=== PATIENT | male | born 1950 | race Hispanic/Latino ===

== ENCOUNTER → 2017-12-24 | Day surgery (SDC) | payer MEDICARE ==
[2017-12-24] VITALS (10 sets, daily range): BP systolic 139–166; BP diastolic 71–78
[~2017-12-24] VITALS: Ht 167.6 cm; Wt 77.1 kg
[~2017-12-24] MED LIST: ALPRAZOLAM 0.5 MG TAB ONE; ASPIRIN 325 MG TAB ONE; CARVEDILOL12.5 MG PO; DIPHENHYDRAMINE HCL 25 MG CAP ONE; DOCUSATE SODIU100 MG PO; FENTANYL CITRATE/PF 100MCG/2 ML INJ ONE; HEPARIN SOD (PORCINE) 1000 UNIT/ML 30ML ONE; HEPARIN SOD/SOD CHLORIDE 2,000 ML ONE; HUMALOG100 UNIT/3; IOPAMIDOL 300MG/ML 100 ML INFUS..BTL IV ONE; LANTUS 3ML100 UNITS/; LIDOCAINE HCL 2% LOCAL 20 ML VIAL ONE; MIDAZOLAM HCL 2 MG/2 ML VIAL ONE; NEORAL25 MG; NIACIN500 M2 PO; NIFEDIPINE10 MG PO; NITROGLYCERIN/D5W 200 MCG/ML 250 ML ONE; PRASUGREL 10 MG TAB ONE; PREDNISONE5 MG; SODIUM CHLORIDE 0.9% 1000ML 1,000 ML ONE; VERAPAMIL HCL 2.5 MG/ML 2 ML VIAL ONE; [UNRECOGNIZED DRUG - OTHER]
[2017-12-24 12:56] LABS: BASOPHILS # (AUTO) 0.1 (0.0-0.1); EOSINOPHILS # (AUTO) 0.1 (0.0-0.4); EOSINOPHILS % 1.8 % (0.0-6.0); HEMATOCRIT 30.2 % (38.2-49.6); HEMOGLOBIN 10.3 g/dL (14.0-18.0); LYMPHOCYTES # (AUTO) 1.2 (1.0-3.2); LYMPHOCYTES % 22.8 % (18.0-39.1); MEAN CORPUSCULAR HGB CONC 34.1 g/dL (31-35); MONOCYTES # (AUTO) 0.6 (0.2-0.8); MONOCYTES % 10.8 % (4.4-11.3); NEUTROPHILS # (AUTO) 3.1 (2.1-6.9); NEUTROPHILS % 61.8 % (38.7-80.0); PLATELET COUNT 225 x10e3/uL (140-360); RED BLOOD COUNT 3.43 x10e6/uL (4.3-5.7); RED CELL DISTRIBUTION WIDTH 13.6 % (11.7-14.4)
[2017-12-24 13:19] LABS: ALBUMIN 3.7 g/dL (3.5-5.0); ANION GAP 13.9 mmol/L (8-16); CALCIUM 9.7 mg/dL (8.4-10.2); CREATININE, SERUM 1.24 mg/dL (0.72-1.25); POTASSIUM 3.9 mmol/L (3.5-5.1)
--- NOTE | 2017-12-25 18:23 | Operative Report ---
DATE OF PROCEDURE: December 24, 2017 INDICATIONS: Peripheral arterial disease and claudication of the left lower extremity. PROCEDURES PERFORMED 1. Abdominal aortogram. 2. Bilateral lower extremity angiograms. 3. Selective catheter placement in the right femoral artery and left superficial femoral artery. 4. Additional third-order catheter placement in right femoral artery and left anterior tibial artery. 5. Atherectomy and drug-coated balloon angioplasty of the left superficial femoral artery. 6. Secondary thrombectomy of the left superficial femoral artery. 7. Deployment of right groin Perclose. COMPLICATIONS: None. RECOMMENDATIONS: Dual antiplatelet therapy. Access obtained in the right femoral artery. A 6-[place] sheath was placed. Abdominal aortogram demonstrated mild disease in the abdominal aorta and iliacs. This catheter was advanced to the right femoral artery to the left superficial femoral artery with 80% distal left femoral artery stenosis. Pedal vessels were not well visualized necessitating additional third-order catheter placement in the right femoral artery and the left anterior tibial artery with 3-vessel runoff to the left foot. A decision was made to intervene on the left femoral artery. The patient received intravenous heparin for anticoagulation along with oral Effient. Orbital atherectomy using a CSI device was performed. Large amounts of visible thrombus was generated for which manual aspiration and secondary thrombectomy was needed. Balloon angioplasty with a 7 mm drug-coated balloon. Excellent end result with 3-vessel runoff, less than 10% residual stenosis. Right groin repaired using Perclose. Patient was discharged home same day. Job#: [id number] [place]
--- OUTSIDE RECORDS SUMMARY | 2018-02-17 00:47 | XMS REPORT | Continuity of Care Document ---
Author Author [facility] Organization [facility] Address [address] [place] [address] Phone Unavailable Care Team Providers Care Chair Caner Name Role Phone FRANCESCO POLANCO MD PCP Insurance Providers Guarantor Ila Avilez Address [address] [place] [address] Email PT DECLINED Payer [facility] Policy Number [id number] Subscriber's Name Ila Avilez Relationship 18 Self / Same As Patient Group Name RETIRED Effective Date 17 Payer Medicare A & B Policy Number [id number] Subscriber's Name Ila Avilez Relationship 18 Self / Same As Patient Group Name RETIRED Effective Date 06 Advance Directives Directive Response Recorded Date/Time Does the patient have an advance directive? No 10/12/17 12:19am If yes, is advance directive on file with [facility]? No 01/30/16 12:50pm If not on file with [facility] will patient provide a copy? No 01/30/16 12:50pm Do you have a Directive to Physician? No 11/12/17 1:01pm Do you have a Medical Power of Self Storage Manager? No 11/12/17 1:01pm Do you have an out of hospital Do Not Resuscitate Order? No 11/12/17 1:01pm Do you have any special needs we should be aware of? No 11/12/17 1:01pm Do you have a support person here with you today? No 11/12/17 1:01pm Did patient receive Notice of Privacy Practices? Yes 11/12/17 1:01pm Did patient receive patient rights and responsibilities? Yes 11/12/17 1:01pm Problems Medical Problem Onset Date Status Cellulitis Unknown Cellulitis of third toe, right Unknown Diabetic ulcer of toe of right foot Unknown Medications Current Home Medications Medication Dose Units Route Directions Days Qty Instructions Start Date Carvedilol (Coreg) 12.5 Mg Tab 25 Mg Daily Cyclosporine, Modified (Neoral) 25 Mg Capsule 75 75MG AT 9AM 100MG AT 9PM Docusate Sodium (Colace) 100 Mg Cap 100 Mg Oral Twice A Day 30 Cap Doxycycline Hyclate 100 Mg Capsule 100 Mg Oral Twice A Day 10 Days 20 TAKE WITH FOOD TO AVOID STOMACH UPSET. DO NOT TAKE MILK, ANTACID, MINERALS AND MULTIVITAMINS WITHIN 3 HOURS OF THIS MEDICATION. 10/13/17 Levothyroxine Sodium 50 Mcg Tablet 25 Mcg Oral Daily 30 Tab Metronidazole 500 Mg Tablet 500 Mg Oral Three Times A Day 10 Days DO NOT DRINK ALCOHOL WHILE ON THIS MEDICATION. 10/13/17 Mycophenolate Sodium (Myfortic) 180 Mg Tablet. 540 Twice A Day Niacin 100 Mg Tab 100 Mg Oral Daily 30 Tab Nifedipine (Nifedipine Er) 30 Mg Tab.er.24 90 Daily Omeprazole 40 Mg Capsule. 40 Daily Prednisone 5 Mg Tablet Daily Social History Social History Problem Response Recorded Date/Time Onset Date Status Hx Psychiatric Problems No 10/12/2017 12:19am Not Applicable Not Applicable Hx Eating Disorder No 10/12/2017 12:19am Not Applicable Not Applicable Hx Substance Use Disorder No 10/12/2017 12:19am Not Applicable Not Applicable Hx Depression No 10/12/2017 12:19am Not Applicable Not Applicable Hx Alcohol Use No 10/12/2017 12:19am Not Applicable Not Applicable Hx Substance Use Treatment No 10/12/2017 12:19am Not Applicable Not Applicable Hx Physical Abuse No 10/12/2017 12:19am Not Applicable Not Applicable Hospital Discharge Instructions No hospital discharge instruction information available. Plan of Care Prescriptions See Medication Section Functional Status No functional status information available. Allergies, Adverse Reactions, Alerts No known allergies. Immunizations No immunization information available. Vital Signs Acute Vital Signs Vital Response Date/Time Temperature (Fahrenheit) 96.5 degrees F (97.6 - 99.5) 10/13/2017 4:00pm Pulse Pulse Rate (adult) 67 bpm (60 - 90) 10/13/2017 4:00pm Respiratory Rate 18 bpm (12 - 24) 10/13/2017 4:00pm Blood Pressure 140/66 mm Hg 10/13/2017 4:00pm Results Laboratory Results Test Name Result Units Flags Reference Collection Date/Time Result Date/ Time Comments White Blood Count 6.76 x10e3/uL 4.8-10.8 10/12/2017 5:53am 10/12/2017 6 :38am Red Blood Count 3.43 x10e6/uL L 4.3-5.7 10/12/2017 5:53am 10/12/2017 6: 38am Hemoglobin 9.9 g/dL L 14.0-18.0 10/12/2017 5:53am 10/12/2017 6:38am Hematocrit 30.5 % L 38.2-49.6 10/12/2017 5:53am 10/12/2017 6:38am Mean Corpuscular Volume 88.9 fL 81-99 10/12/2017 5:53am 10/12/2017 6: 38am Mean Corpuscular Hemoglobin 28.9 pg 28-32 10/12/2017 5:53am 10/12/2017 6:38am Mean Corpuscular Hemoglobin Concent 32.5 g/dL 31-35 10/12/2017 5:53am 10/12/2017 6:38am Red Cell Distribution Width 13.5 % 11.7-14.4 10/12/2017 5:53am 2017 6:38am Platelet Count 303 x10e3/uL 140-360 10/12/2017 5:53am 10/12/2017 6: 38am Neutrophils (%) (Auto) 76.6 % 38.7-80.0 10/12/2017 5:53am 10/12/2017 6: 38am Lymphocytes (%) (Auto) 11.1 % L 18.0-39.1 10/12/2017 5:53am 10/12/2017 6 :38am Monocytes (%) (Auto) 8.6 % 4.4-11.3 10/12/2017 5:53am 10/12/2017 6: 38am Eosinophils (%) (Auto) 1.9 % 0.0-6.0 10/12/2017 5:5310/12/2017 6: 38am Basophils (%) (Auto) 0.9 % 0.0-1.0 10/12/2017 5:5310/12/2017 6:38am IM GRANULOCYTES % 0.9 % 0.0-1.0 10/12/2017 5:5310/12/2017 6:38am Neutrophils # (Auto) 5.2 2.1-6.9 10/12/2017 5:5310/12/2017 6:38am Lymphocytes # (Auto) 0.8 L 1.0-3.2 10/12/2017 5:5310/12/2017 6: 38am Monocytes # (Auto) 0.6 0.2-0.8 10/12/2017 5:5310/12/2017 6:38am Eosinophils # (Auto) 0.1 0.0-0.4 10/12/2017 5:53am 10/12/2017 6:38am Basophils # (Auto) 0.1 0.0-0.1 10/12/2017 5:5310/12/2017 6:38am Absolute Immature Granulocyte (auto 0.06 x10e3/uL 0-0.1 10/12/2017 5: 5310/12/2017 6:38am Sodium Level 135 mmol/L L 136-145 10/13/2017 5:5410/13/2017 6:46am Potassium Level 4.0 mmol/L 3.5-5.1 10/13/2017 5:54am 10/13/2017 6:46am Chloride Level 104 mmol/L 98-107 10/13/2017 5:54am 10/13/2017 6:46am Carbon Dioxide Level 19 mmol/L L 22-29 10/13/2017 5:54am 10/13/2017 6: 46am Anion Gap 16.0 mmol/L 8-16 10/13/2017 5:54am 10/13/2017 6:46am Glucose Level 174 mg/dL H 74-118 10/13/2017 5:54am 10/13/2017 6:46am Calcium Level 9.5 mg/dL 8.4-10.2 10/13/2017 5:54am 10/13/2017 6:46am Lactic Acid Level 11.3 MG/DL 4.5-19.8 10/11/2017 3:08pm 10/11/2017 3: 36pm Iron Level 36 ug/dL L 65-175 10/11/2017 1:05pm 10/11/2017 5:45pm Total Iron Binding Capacity 183 ug/dL L 261-478 10/11/2017 1:05pm 2017 5:45pm Percent Iron Saturation 20 % 15-50 10/11/2017 1:05pm 10/11/2017 5:45pm Transferrin 131 mg/dL L 174-364 10/11/2017 1:05pm 10/11/2017 5:45pm Total Bilirubin 0.3 mg/dL 0.2-1.2 10/12/2017 5:53am 10/12/2017 6:50am Aspartate Amino Transf (AST/SGOT) 18 IU/L 5-34 10/12/2017 5:53am 2017 6:50am Alanine Aminotransferase (ALT/SGPT) 15 IU/L 0-55 10/12/2017 5:53am 6:50am Total Protein 6.7 g/dL 6.5-8.1 10/12/2017 5:53am 10/12/2017 6:50am Albumin 2.9 g/dL L 3.5-5.0 10/12/2017 5:53am 10/12/2017 6:50am Globulin 3.8 g/dL H 2.3-3.5 10/12/2017 5:53am 10/12/2017 6:50am Albumin/Globulin Ratio 0.8 0.8-2.0 10/12/2017 5:53am 10/12/2017 6: 50am Alkaline Phosphatase 98 IU/L 40-150 10/12/2017 5:53am 10/12/2017 6: 50am Creatine Kinase 119 IU/L 30-200 10/11/2017 1:05pm 10/11/2017 1:43pm Creatine Kinase MB 1.70 ng/mL 0-5.0 10/11/2017 1:05pm 10/11/2017 1: 47pm Troponin I 0.010 ng/mL 0-0.300 10/11/2017 1:05pm 10/11/2017 1:47pm Vancomycin Level Trough 9.4 ug/mL 5.0-10.0 10/13/2017 4:19pm 2017 4:50pm Hemoglobin A1c Percent 7.6 % H 4.0-7.0 11/03/2017 12:25pm 11/03/2017 2: 16pm Blood Urea Nitrogen 17 mg/dL 710/29/2017 8:00am 10/29/2017 8:26am Creatinine 1.41 mg/dL H 0.72-1.25 10/29/2017 8:00am 10/29/2017 8:26am BUN/Creatinine Ratio 12 610/29/2017 8:00am 10/29/2017 8:26am Estimat Glomerular Filtration Rate 50 ML/MIN L 60- 10/29/2017 8:00am 8:26am Ranges were taken from the National Kidney Disease Education Program and the National [employer] literature. Reference ranges: 60 or greater: Normal 16-59 (for 3 consecutive months): Chronic kidney disease 15 or less: Kidney failure Bedside Glucose 214 mg/dL H 70-120 12/14/2017 12:30pm 12/14/2017 2:28pm Meter ID: [id number] Microbiology Results Procedure Source Organism/Result Collection Date/Time Result Date/Time Result Status Blood Culture Blood NO GROWTH AFTER 5 DAYS, FINAL REPORT 10/11/2017 1:35pm 10/16/2017 2:07pm Final Wound Culture Toe, Right Third PSEUDOMONAS AERUGINOSA 10/20/2017 12:45pm 8:05am Final STAPHYLOCOCCUS AUREUS 10/20/2017 12:45pm 10/23/2017 8:05am Final Procedures Procedure Status Date Provider(s) X-ray of chest, two views Active 10/29/17 RHONDA COLEMAN MD Encounters Encounter Location Arrival/Admit Date Discharge/Depart Date Attending Provider Discharged [facility]ring [facility] 12/14/17 10:07am 11:59pm TARAS BLACKWELL MD Registered Clinic [facility] 10/29/17 7:34am RHONDA COLEMAN MD Discharged [facility] 10/18/17 8:31am 11/13/17 11:59pm TARAS BLACKWELL MD Discharged [facility]patient [facility] 10/11/17 4:54pm 10/13/17 5:40pm TANIKA DEVI MD
--- OUTSIDE RECORDS SUMMARY | 2018-02-17 00:47 | XMS REPORT ---
Author Author [facility] Address Unknown Phone Unavailable Care Team Providers Care Tufter Hand Name Role Phone PRUDENCIO GALICIA Unavailable Unavailable RHONDA COLEMAN Unavailable Unavailable TANIKA DEVI Unavailable Unavailable ALAINA VILLASEÑOR Unavailable Unavailable Problems This patient has no known problems. Allergies, Adverse Reactions, Alerts This patient has no known allergies or adverse reactions. Medications This patient has no known medications. Results Test Description Test Time Test Comments Text Results Atomic Results Result Comments CHEST 2 VIEWS 2017-11-04 11:03:00 [place] [address] Patient Name: Ila AVILEZ MR #: [id number] : 1950 Age/Sex: 67/M Req #: [id number] Adm Physician: Ordered by: LORENA AQUINO MD Report #: [id number] Location: OR Room/Bed: Procedure: [id number] DX/CHEST 2 VIEWS Exam Date: 11/04/17 Exam Time: 1038 REPORT STATUS: Signed PROCEDURE: CHEST 2 VIEWS TECHNIQUE: PA and lateral chest INDICATION: Preoperative chest x- ray for right leg/foot surgery. COMPARISON: None. FINDINGS: Right PICC terminating in the mid SVC. Lungs are clear. No pleural effusions. Normal heart size, mediastinal contour, and pulmonary vasculature. Mild aortic arch calcification. Skeletal hyperostosis in the thoracic spine. CONCLUSION: No acute abnormality. Dictated by: Romaine Daniel M.D. on 11/04/2017 at 11:03 Electronically approved by: Romaine Daniel M.D. on 11/04/2017 at 11:03 Dictated By: ROMAINE DANIEL MD 1103 Transcribed By: CONNIE on 11/04/17 1103 COPY TO: LORENA AQUINO MD CHEST 2 VIEWS 2017-10-29 10:21:00 [place] [address] Patient Name: Ila AVILEZ MR #: [id number] : 1950 Age/Sex: 67/M Req #: [id number] Adm Physician: Ordered by: RHONDA COLEMAN MD Report #: [id number] Location: DX Room/Bed: Procedure: [id number] DX/CHEST 2 VIEWS Exam Date: 10/29/17 Exam Time: 0955 REPORT STATUS: Signed PROCEDURE: Frontal and lateral views of the chest. COMPARISON: None. INDICATIONS: STATUS POST PICC LINE PLACEMENT FINDINGS: Lines/tubes: A right PICC has been placed with its tip localized to the cavoatrial junction. Lungs: Patchy ill-defined left upper and lower lobe airspace opacities. Pleura: There is no pleural effusion or pneumothorax. Heart and mediastinum: The heart and the mediastinum are normal. Bones: Flowing osteophytosis of the thoracic spine. IMPRESSION: 1. Patchy ill-defined left upper and lower lobe airspace opacities. 2. Right PICC line as described above. Victor M Ryan D.O. Dictated by: Victor M Ryan D.O. on 10/29/2017 at 10:21 Electronically approved by: Victor M Ryan D.O. on 10/29/2017 at 10:21 Dictated By: VICTOR M RYAN DO 1021 Transcribed By: CONNIE on 10/29/17 1021 COPY TO: RHONDA COLEMAN MD INFLUENZA A H1N1 PCR 2017-05-21 14:00:00 INFLUENZA A RNA (BEAKER) (test gvcg=2253) Not Detected Not Detected, Inconclusive NOVEL H1N1 RNA (BEAKER) (test jady=6833) Not Detected Not Detected, Inconclusive These assays were performed by real-time RT-PCR (marker machine attendant-PCR) utilizing fluorogenic hydrolysis probe technology for the detection of human Influenza A viruses and the differential detection of novel H1N1 Influenza virus in respiratory specimens. The test is composed of (1) an RNA extraction from patient specimen, and (2) marker machine attendant-PCR amplification and detection with human Influenza A and novel C5W0-lzcrhaap primers and probes. A well-conserved region of the Influenza A matrix gene is targeted in one set of reactions to identify both seasonal Influenza A and novel H1N1 Influenza virus in the specimen. In addition, a specific region of the hemagglutinin gene is targeted to differentiate the novel H1N1 virus from the seasonal human influenza. An internal control is used to confirm PCR amplification. Genetic variation and other factors can affect the accuracy of nucleic acid testing; therefore, the results should be interpreted in light of clinical data. This test was developed and its performance characteristics determined by the [facility] Pathology Department, Section of Molecular Pathology. It has not been cleared or approved by the U.S. Food and Drug Administration (FDA). Since FDA approval is not required for clinical use of the test, validation was done as required by The Clinical Laboratory Amendments of 1988.These assays were performed by real-time RT-PCR (marker machine attendant-PCR) utilizing fluorogenic hydrolysis probe technology for the detection of human Influenza A viruses and the differential detection of novel H1N1 Influenza virus in respiratory specimens. The test is composed of (1) an RNA extraction from patient specimen, and (2) marker machine attendant-PCR amplification and detection with human Influenza A and novel T0N6-utbucpqj primers and probes. A well-conserved region of the Influenza A matrix gene is targeted in one set of reactions to identify both seasonal Influenza A and novel H1N1 Influenza virus in the specimen. In addition, a specific region of the hemagglutinin gene is targeted to differentiate the novel H1N1 virus from the seasonal human influenza. An internal control is used to confirm PCR amplification. Genetic variation and other factors can affect the accuracy of nucleic acid testing; therefore, the results should be interpreted in light of clinical data. This test was developed and its performance characteristics determined by the [facility] Pathology Department, Section of Molecular Pathology. It has not been cleared or approved by the U.S. Food and Drug Administration ( FDA). Since FDA approval is not required for clinical use of the test, validation was done as required by The Clinical Laboratory Amendments of 1988.CT , CHEST, WITHOUT [id number] 17:11:00Reason for exam:->COUGHReason for exam:->FEVERWhat is the patient's sedation requirement?->No SedationFINAL REPORT INDICATION: 67-year-old immunocompromised male with cough and fever. COMPARISON:Chest radiograph May 20, 2017Chest CT exam June 19, 2015 TECHNIQUE: Chest CT exam WITHOUT intravenous contrast. The exam was performed according to our department dose-optimization protocol, which includes automated exposure control, adjustments of mA and kV according to patient size. Iterative reconstructions are also sometimes employed. FINDINGS :There are tree-in-bud opacities, representing pneumonitis, in both lungs and all lobes most significant in the left upper lobe and in the right lower lobe. No consolidation or cavitary pneumonia is demonstrated. Central airways are clear. No pleural effusion. No mediastinal or hilar adenopathy. Esophagus unremarkable. Heart is at the upper limits of normal in size. Coronary artery calcification and thoracic aortic atherosclerotic plaque noted. No pericardial effusion. No suspicious osseous lesion demonstrated. Ossification of the syndesmophytes suggests ankylosing spondylitis. Partial imaging of the upper abdomen demonstrates cholecystectomy surgical clips and renal atrophy. IMPRESSION: Tree-in-bud opacities in both lungs and all lobes, representing pneumonitis. No consolidation and no cavitary pneumonia. Signed: Iftikhar Gross MDReport Verified Date/Time: 05/20/2017 17:11:09 Reading Location: [facility] B1 C013Y CT Body Reading Room D INFLUENZA A&B [id number] 14:39:00* Test Item Value Reference Range Comments RAPID INFLUENZA A AG (BEAKER) (test pxqh=7527) Negative Negative, Inconclusive RAPID INFLUENZA B AG (BEAKER) (test znzf=5218) Negative Negative, Inconclusive RAD, CHEST, 2 [id number] 14:01:00Reason for exam:->COUGHReason for exam:-> FEVERFINAL REPORT TECHNIQUE: Frontal and lateral chest radiographs dated 05/20/2017. CLINICAL HISTORY: Cough, fever COMPARISON STUDY: Chest radiograph dated 06/12/2016 FINDINGS: Small amount of atelectasis is seen in the left lung base. There are ill-defined, micronodular opacities in the left upper lobe and right lower lobe concerning for an infectious/inflammatory process. No pleural effusion or pneumothorax. Cardiomediastinal silhouette is normal in size. No pulmonary edema. Degenerative changes are seen in the spine. IMPRESSION: Ill-defined, micronodular opacities in the left upper lobe and right lower lobe concerning for an infectious/inflammatory process. CT scan of the chest is recommended. Signed: Nano Steele Verified Date/Time : 05/20/2017 14:01:06 Reading Location: [facility] Radiology Reading Room C METABOLIC [id number] 13:46:00* Test Item Value Reference Range Comments SODIUM (BEAKER) (test pnrv=144) 133 meq/L 136-145 POTASSIUM (BEAKER) (test onpl=188) 3.6 meq/L 3.5-5.1 CHLORIDE (BEAKER) (test fpvl=865) 105 meq/L 98-107 CO2 (BEAKER) (test oizu=216) 18 meq/L 22-29 BLOOD UREA NITROGEN (BEAKER) (test ynmg=803) 18 mg/dL 7-21 CREATININE (BEAKER) (test ygry=864) 1.50 mg/dL 0.57-1.25 GLUCOSE RANDOM (BEAKER) (test pglq=581) 165 mg/dL 70-105 CALCIUM (BEAKER) (test kvpw=301) 10.0 mg/dL 8.4-10.2 EGFR (BEAKER) (test qnqx=4421) 47 mL/min/1.73 sq m ESTIMATED GFR IS NOT ACCURATE CREATININE CLEARANCE IN PREDICTING GLOMERULAR FILTRATION RATE. ESTIMATED GFR IS NOT APPLICABLE FOR DIALYSIS PATIENTS. CBC W/PLT COUNT & AUTO [id number] 13:25:00* Test Item Value Reference Range Comments WHITE BLOOD CELL COUNT (BEAKER) (test khza=197) 7.6 K/ L 3.5-10.5 RED BLOOD CELL COUNT (BEAKER) (test ajxx=525) 3.78 M/ L 4.63-6.08 HEMOGLOBIN (BEAKER) (test vkny=100) 10.9 GM/DL 13.7-17.5 HEMATOCRIT (BEAKER) (test bfmz=158) 32.7 % 40.1-51.0 MEAN CORPUSCULAR VOLUME (BEAKER) (test vyxa=307) 86.5 fL 79.0-92.2 MEAN CORPUSCULAR HEMOGLOBIN (BEAKER) (test mzwy=242) 28.8 pg 25.7-32.2 MEAN CORPUSCULAR HEMOGLOBIN CONC (BEAKER) (test dsid=709) 33.3 GM/DL 32.3- 36.5 RED CELL DISTRIBUTION WIDTH (BEAKER) (test lvqr=562) 13.1 % 11.6-14.4 PLATELET COUNT (BEAKER) (test toxh=539) 315 K/CU MM 150-450 MEAN PLATELET VOLUME (BEAKER) (test qxnh=661) 10.2 fL 9.4-12.4 NUCLEATED RED BLOOD CELLS (BEAKER) (test vnle=642) 0 /100 WBC 0-0 NEUTROPHILS RELATIVE PERCENT (BEAKER) (test mglz=250) 76 % LYMPHOCYTES RELATIVE PERCENT (BEAKER) (test qzrw=391) 11 % MONOCYTES RELATIVE PERCENT (BEAKER) (test kiwq=369) 9 % EOSINOPHILS RELATIVE PERCENT (BEAKER) (test kpcz=697) 4 % BASOPHILS RELATIVE PERCENT (BEAKER) (test shln=696) 1 % NEUTROPHILS ABSOLUTE COUNT (BEAKER) (test trdf=863) 5.79 K/ L 1.78-5.38 LYMPHOCYTES ABSOLUTE COUNT (BEAKER) (test iqoc=241) 0.80 K/ L 1.32-3.57 MONOCYTES ABSOLUTE COUNT (BEAKER) (test rdgk=296) 0.66 K/ L 0.30-0.82 EOSINOPHILS ABSOLUTE COUNT (BEAKER) (test zepk=901) 0.27 K/ L 0.04-0.54 BASOPHILS ABSOLUTE COUNT (BELEVI) (test hakf=991) 0.06 K/ L 0.01-0.08 IMMATURE GRANULOCYTES-RELATIVE PERCENT (THUAN) (test xsep=1152) 1 % 0-1 ARTERIAL DUPLEX LWR B/L [facility] [address] [place] [address] Patient Name : Ila AVILEZ MR #: [id number] : 1950 Age/Sex: 67/M Adm Physician : TANIKA DEVI MD Admit Date : Location : MED/SURG2 Room/Bed : [facility] _ REPORT: Cardiology Report DATE OF STUDY: October 11, 2017 DOPPLER SCAN OF LOWER EXTREMITY ARTERIES The left leg arteries showed velocity of 2.1 meters per second with biphasic waveform in the distal left femoral artery, monophasic waveform in the mid left posterior tibial artery and absence of flow in the distal left anterior tibial artery consistent with small vessel disease as well as moderately severe stenosis involving the distal left femoral artery. On the right leg, the velocity was 2 meters per second involving the proximal right posterior tibial artery with distal waveforms becoming monophasic including the right anterior tibial artery suggestive of high-grade stenosis in the proximal right posterior tibial artery and significant disease involving the right anterior tibial artery. CONCLUSIONS 1. Probable high-grade stenosis involving the distal left femoral artery with velocity of 2.1 meters per second. 2. Probable high-grade stenosis involving the proximal right posterior tibial artery with velocity of 2.0 meters per second. 3. Small vessel disease involving the right anterior tibial artery as well as the left anterior tibial artery with the left anterior tibial artery distally showing no flow. 4. Small vessel disease also involving the mid left posterior tibial artery with monophasic waveform. DT: 2017 09:03 Job#: [id number] Signature Date Dictated By: TANIKA DEVI MD Transcribed By: SMMALIA on 10/12/17 <Electronically signed by TANIKA DEVI MD><<Signature on File>>10/13/17926 COPY TO: FOOT RIGHT COMPLETE [place] [address] Patient Name: Ila AVILEZ MR #: [id number] : 1950 Age/Sex: 67/M Req #: [id number] Adm Physician: Ordered by: CJ FELDER NP Report #: [id number] Location: ER Room/Bed: Procedure: [id number] DX/FOOT RIGHT COMPLETE Exam Date: 10/11/17 Exam Time : 1340 REPORT STATUS: Signed FOOT RIGHT COMPLETE HISTORY: Ulcer on right toe. COMPARISON: Right foot MRI 01/30/2016 FINDINGS: Bones: No acute displaced fracture. Well-corticated erosion of the medial base of the first proximal phalanx may be related to gout. Osseous alignment is within normal limits. Joints: The joint spaces are well- maintained. Soft tissues: Diffuse vascular calcifications. Soft tissue swelling of the forefoot. No subcutaneous emphysema. IMPRESSION: No radiographic evidence of osteomyelitis. Recommend follow-up radiograph in 10 weeks in the setting of continued poor wound healing. A MRI may be obtained for more sensitive evaluation. Signed by: DR. Khanh Romo MD on 2017 4:30 PM Dictated By: KHANH ROMO MD 163 Transcribed By: STEVEN on 10/11/17 163 COPY TO: CJ FELDER CHAIR LIFT OPERATOR
--- OUTSIDE RECORDS SUMMARY | 2018-02-17 00:47 | XMS REPORT | Clinical Summary ---
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 Disp. Refills Start End Date Status Date niacin (NIASPAN) 1000 MG Take 1,000 mg by mouth Active CR tablet nightly. predniSONE (DELTASONE) 5 Take 5 mg by mouth daily. Active MG tablet insulin glargine (LANTUS) Inject 45 Units Active 100 unit/mL injection subcutaneously nightly Dose confirmed and verified with patient's daughter.. insulin lispro (HUMALOG) Inject 5 Units Active 100 unit/mL subcutaneously 3 (three) injectionIndications: times daily before meals Diabetes Mellitus HOLD FOR GLUCOSE <200 - Dose confirmed and verified with patient's daughter.. omeprazole (PRILOSEC) 40 Take 40 mg by mouth Active MG capsule daily. levothyroxine (SYNTHROID, Take 1 tablet (25 mcg 90 tablet 1 02/10/20 Active LEVOTHROID) 25 MCG tablet total) by mouth daily. 13 NIFEdipine (PROCARDIA-XL) Take 1 tablet (90 mg 30 tablet 6 03/09/20 Active 90 MG (OSM) 24 hr tablet total) by mouth daily. 13 mycophenolate (MYFORTIC) Take 3 tablets (540 mg 180 tablet 6 07/06/19 Active 180 MG EC tablet total) by mouth 2 (two) 14 times daily. docusate sodium (COLACE) Take 1 capsule (100 mg 10 capsule 0 07/06/19 Active 100 MG capsule total) by mouth 2 (two) 14 times daily. carvedilol (COREG) 25 MG Take 25 mg by mouth 2 Active tablet (two) times daily with breakfast and dinner. cycloSPORINE modified Take 100 mg by mouth Active (NEORAL) 100 MG capsule every evening. sodium bicarbonate 650 MG Take 2 tablets (1,300 mg 120 tablet 0 06/13/19 tablet total) by mouth 2 (two) 17 18 times daily. levoFLOXacin (LEVAQUIN) Take 1 tablet (500 mg 7 tablet 0 05/20/19 500 MG tablet total) by mouth daily for 18 18 7 days. benzonatate (TESSALON) Take 1 capsule (100 mg 21 capsule 0 05/20/19 05/27/19 100 MG capsule total) by mouth every 8 18 18 (eight) hours for 7 days. Active Problems Problem Noted Date Bacterial pneumonia, unspecified 06/10/2016 SIRS (systemic inflammatory response syndrome) ([facility]) 08/23/2015 Fever, unspecified fever cause 06/19/2015 Left lower lobe pneumonia ([facility]) 02/22/2015 Fever 01/17/2014 S/P kidney transplant 10/11/2012 DM (diabetes mellitus) ([facility]) Gastroparesis Retinopathy CAD (coronary artery disease) Hyperlipidemia PVD (peripheral vascular disease) ([facility]) GERD (gastroesophageal reflux disease) Encounters Date Type Specialty Care Team Description 05/20/2017 Emergency Emergency Medicine Lori Matta MD S/P kidney transplant (Primary Dx);Wheezing-associated respiratory infection;Immunosuppressi on ([facility]);Fever, unspecified fever cause;Influenza-like illness;Pneumonitis after 12/23/2016 Family History Medical History Relation Name Comments Diabetes Mother Diabetes Son Relation Name Status Comments Mother Son Social History Tobacco Use Types Packs/Day Years Used Date Former Smoker 0.25 20 Quit: 05/17/1994 Smokeless Tobacco: Never Used Alcohol Use Drinks/Week oz/Week Comments No Sex Assigned at Date Recorded Not on file Last Filed Vital Signs Vital Sign Reading Time Taken Blood Pressure 182/80 05/20/2017 5:32 PM [employer] Pulse 84 05/20/2017 5:32 PM [employer] Temperature 36.6 C (97.9 F) 05/20/2017 4:03 PM [employer] Respiratory Rate 18 05/20/2017 5:32 PM [employer] Oxygen Saturation 99% 05/20/2017 5:32 PM [employer] Inhaled Oxygen - - Concentration Weight 76 kg (167 lb 8.8 oz) 05/20/2017 11:15 AM [employer] Height - - Body Mass Index 27.04 05/20/2017 11:15 AM [employer] Plan of Treatment Health Maintenance Due Date Last Done Comments INFLUENZA VACCINE 02/14/2018 Results * CT chest without contrast (05/20/2017 4:25 PM) Specimen Performing Laboratory GE RIS Narrative FINAL REPORT INDICATION: 67-year-old immunocompromised male with cough and fever. COMPARISON: Chest radiograph May 20, [address] exam June 19, 2015 TECHNIQUE: Chest CT exam WITHOUT intravenous contrast. The exam was performed according to our department dose-optimization protocol, which includes automated exposure control, adjustments of mA and kV according to patient size. Iterative reconstructions are also sometimes employed. FINDINGS: There are tree-in-bud opacities, representing pneumonitis, in both [...] No consolidation and no cavitary pneumonia. Signed: Suzanne Gross MD Report Verified Date/Time:05/20/2017 17:11:09 Reading Location: [address] Body Reading Room Procedure Note Interface, External Ris In - 05/20/2017 5:13 PM [employer] FINAL REPORT INDICATION: 67-year-old immunocompromised male with cough and fever. COMPARISON: Chest radiograph May 20, [address] exam June 19, 2015 TECHNIQUE: Chest CT exam WITHOUT intravenous contrast. The exam was performed according to our department dose-optimization protocol, which includes automated exposure control, adjustments of mA and kV according to patient size. Iterative reconstructions are also sometimes employed. FINDINGS: There are tree-in-bud opacities, representing pneumonitis, in both [...] No consolidation and no cavitary pneumonia. Signed: Suzanne Gross MD Report Verified Date/Time: 05/20/2017 17:11:09 Reading Location: [facility] [id number] CT Body Reading Room * XR chest 2 views (05/20/2017 1:36 PM) Specimen Performing Laboratory GE RIS Narrative FINAL REPORT TECHNIQUE: Frontal and lateral chest radiographs [...] scan of the chest is recommended. Signed: Claire Steele MD Report Verified Date/Time:05/20/2017 14:01:06 Reading Location: [facility] Radiology Reading Room Procedure Note Interface, External Ris In - 05/20/2017 2:03 PM [employer] FINAL REPORT TECHNIQUE: Frontal and lateral chest radiographs [...] scan of the chest is recommended. Signed: Claire Steele MD Report Verified Date/Time: 05/20/2017 14:01:06 Reading Location: [facility] Radiology Reading Room * Influenza A H1N1 PCR (05/20/2017 12:52 PM) Component Value Ref Range Influenza A RNA Not Detected Not Detected, Inconclusive Novel H1N1 RNA Not Detected Not Detected, Inconclusive Specimen Performing Laboratory Nasal - Nasopharyngeal [facility] [address] These assays were performed by real-time RT-PCR (customer complaint service supervisor-PCR) utilizing fluorogenic hydrolysis probe technology for the detection of human Influenza A viruses and the differential detection of novel H1N1 Influenza virus in respiratory specimens. The test is composed of (1) an RNA extraction from patient specimen, and (2) customer complaint service supervisor-PCR amplification and detection with human Influenza A and novel [id number] primers and probes. A well-conserved region of the Influenza A matrix gene is targeted in one set of reactions to identify both seasonal Influenza A and novel H1N1 Influenza virus in the specimen.In addition, a specific region of the hemagglutinin gene is targeted to differentiate the novel H1N1 virus from the seasonal human influenza. An internal control is used to confirm PCR amplification.Genetic variation and other factors can affect the accuracy of nucleic acid testing; therefore, the results should be interpreted in light of clinical data. This test was developed and its performance characteristics determined by the [facility] Pathology Department, Section of Molecular Pathology.It has not been cleared or approved by the U.S. Food and Drug Administration (FDA).Since FDA approval is not required for clinical use of the test, validation was done as required by The Clinical Laboratory Amendments of 1988. These assays were performed by real-time RT-PCR (customer complaint service supervisor-PCR) utilizing fluorogenic hydrolysis probe technology for the detection of human Influenza A viruses and the differential detection of novel H1N1 Influenza virus in respiratory specimens. The test is composed of (1) an RNA extraction from patient specimen, and (2) customer complaint service supervisor-PCR amplification and detection with human Influenza A and novel [id number] primers and probes. A well-conserved region of the Influenza A matrix gene is targeted in one set of reactions to identify both seasonal Influenza A and novel H1N1 Influenza virus in the specimen.In addition, a specific region of the hemagglutinin gene is targeted to differentiate the novel H1N1 virus from the seasonal human influenza. An internal control is used to confirm PCR amplification.Genetic variation and other factors can affect the accuracy of nucleic acid testing; therefore, the results should be interpreted in light of clinical data. This test was developed and its performance characteristics determined by the [facility] Pathology Department, Section of Molecular Pathology.It has not been cleared or approved by the U.S. Food and Drug Administration (FDA).Since FDA approval is not required for clinical use of the test, validation was done as required by The Clinical Laboratory Amendments of 1988. * Rapid Influenza A&B Screen (05/20/2017 12:52 PM) Component Value Ref Range Rapid Influenza A Antigen Negative Negative, Inconclusive Rapid influenza B Antigen Negative Negative, Inconclusive Specimen Performing Laboratory Nasal - Nasopharyngeal [facility] [address] [place] [address] * CBC with platelet count + automated diff (05/20/2017 12:43 PM) Component Value Ref Range WBC 7.6 3.5 - 10.5 K/ L RBC 3.78 (L) 4.63 - 6.08 M/ L Hemoglobin 10.9 (L) 13.7 - 17.5 GM/DL Hematocrit 32.7 (L) 40.1 - 51.0 % MCV 86.5 79.0 - 92.2 fL MCH 28.8 25.7 - 32.2 pg MCHC 33.3 32.3 - 36.5 GM/DL RDW 13.1 11.6 - 14.4 % Platelets 315 150 - 450 K/CU MM MPV 10.2 9.4 - 12.4 fL nRBC 0 0 - 0 /100 WBC % Neutros 76 % % Lymphs 11 % % Monos 9 % % Eos 4 % % Baso 1 % # Neutros 5.79 (H) 1.78 - 5.38 K/ L # Lymphs 0.80 (L) 1.32 - 3.57 K/ L # Monos 0.66 0.30 - 0.82 K/ L # Eos 0.27 0.04 - 0.54 K/ L # Baso 0.06 0.01 - 0.08 K/ L Immature 1 0 - 1 % Granulocytes-Relative Specimen Performing Laboratory Blood - Line, Venous [address] [address] * CBC with platelet count + automated diff (05/20/2017 12:43 PM) Specimen Performing Laboratory Blood Narrative The following orders were created for panel order CBC with platelet count + automated diff. Procedure Abnormality Status --------- - ------ CBC with platelet count ...[[id number]]AbnormalFinal result Please view results for these tests on the individual orders. * Basic metabolic panel (Na, K+, Cl, CO2, Glu, Ca, BUN, Cr) (05/20/2017 12:43 PM ) Component Value Ref Range Sodium 133 (L) 136 - 145 meq/L Potassium 3.6 3.5 - 5.1 meq/L Chloride 105 98 - 107 meq/L CO2 18 (L) 22 - 29 meq/L BUN 18 7 - 21 mg/dL Creatinine 1.50 (H) 0.57 - 1.25 mg/dL Glucose 165 (H) 70 - 105 mg/dL Calcium 10.0 8.4 - 10.2 mg/dL EGFR 47Comment: ESTIMATED GFR IS NOT ACCURATE mL/min/1.73 sq m CREATININE CLEARANCE IN PREDICTING GLOMERULAR FILTRATION RATE. ESTIMATED GFR IS NOT APPLICABLE FOR DIALYSIS PATIENTS. Specimen Performing Laboratory Blood - Line, Venous [address] [address] after 12/23/2016
== END | disposition home or self-care (01) ==
LOC: CATH LAB 11:11
PROVIDERS: ATTEND Internal Medicine Interventional Cardiology
DX: I70.212 Atherosclerosis of native arteries of extremities with intermittent claudication, left leg (principal); E11.9 Type 2 diabetes mellitus without complications; Z94.0 Kidney transplant status; Z79.02 Long term (current) use of antithrombotics/antiplatelets; Z79.82 Long term (current) use of aspirin; Z79.4 Long term (current) use of insulin; Z82.49 Family history of ischemic heart disease and other diseases of the circulatory system; Z83.3 Family history of diabetes mellitus
CPT/HCPCS: 36415; 37186; 37225; 80053; 85025; C1724; C1725; C1769 ×2; C1887; J1644; J2001; J2250; J7030; Q9967; 75710; 75774; C2623